=== PATIENT | male | born 1965 | race Caucasian/White ===

== ENCOUNTER 2019-03-14 13:11 | Day surgery (SDC) | payer BC ==
[~2019-03-14 13:11] MED LIST: BACITRACIN 50,000 UNIT, POLYMYXIN B 500,000 UNIT in SODIUM CHLORIDE 0.9% IRRIGATIO 1,00... IRRIGATION ONE; DEXAMETHASONE SOD PHOSPHATE 10 MG/ML 1 ML VIAL IV ONE; HYDROmorphone 0.5 MG/0.5 ML SYRINGE IVP PRN; LIDOCAINE 1% 20 ML VIAL (10MG/ML) FOR IV START INTRADERMA PRN; ONDANSETRON 4 MG/2 ML VIAL IVP ONE; fentaNYL (PF) 50 MCG/ML 2 ML AMP IV PRN
[2019-03-14] MEDS: LACTATED RINGERS 1,000 ML IV SCH (14:06)
[2019-03-14] MEDS ORDERED: NEOSTIGMINE 1 MG/ML 10 ML VIAL ONE (16:04)
[2019-03-14] MEDS ORDERED: MIDAZOLAM 2 MG/2 ML VIAL ONE (16:04)
[2019-03-14] MEDS ORDERED: LIDOCAINE 1% INJ 10MG/ML (20 ML MDV) ONE (16:04)
[2019-03-14] MEDS ORDERED: fentaNYL (PF) 50 MCG/ML 2 ML AMP ONE (16:04)
[2019-03-14] MEDS ORDERED: PROPOFOL 10 MG/ML 20 ML VIAL IV ONE (16:04)
[2019-03-14] MEDS ORDERED: GLYCOPYRROLATE 0.2 MG/ML 2 ML VIAL ONE (16:04)
[2019-03-14] MEDS ORDERED: ROCURONIUM BROMIDE 10 MG/ML 10 ML VIAL IV ONE (16:04)
[2019-03-14] MEDS ORDERED: SUCCINYLCHOLINE CHLORIDE 100 MG/5 ML SYR IV ONE (16:04)
[2019-03-14] MEDS ORDERED: BUPIVACAIN-EPI 0.25%-1:200,000 30 ML VIAL SQ ONE ×2 (16:57)
--- NOTE | 2019-03-14 17:17 | XR ---
Cervical spine HISTORY: Needle placement Single lateral view of the cervical spine. Endotracheal tube is in place. There are overlying leads. There is a needle present at the disc space C6-7, there is associated spondylosis. IMPRESSION: Orthopedic localization
[2019-03-14] MEDS ORDERED: ACETAMINOPHEN TAB 325 MG TAB PO PRN (17:34)
[2019-03-14] MEDS ORDERED: HYDROmorphone 0.5 MG/0.5 ML SYRINGE IVP PRN (17:34)
[2019-03-14] MEDS ORDERED: BENZOCAINE/MENTHOL LOZENG 1 EACH LOZENGE MUCOUS MEM PRN (17:34)
[2019-03-14] MEDS ORDERED: MAGNESIUM HYDROXIDE 2,400 MG/10 ML CUP PO PRN (17:34)
[2019-03-14] MEDS ORDERED: ONDANSETRON 4 MG/2 ML VIAL IVP PRN (17:34)
[2019-03-14] MEDS ORDERED: HYDROmorphone 1 MG/ML 1 ML SYRINGE IVP PRN (17:34)
[2019-03-14] MEDS ORDERED: HYDROcodone/APAP 5-325MG 1 EACH TAB PO PRN (17:34)
[2019-03-14] MEDS ORDERED: SODIUM CHLORIDE 0.9% 1,000 ML IV SCH (17:45)
[2019-03-14] MEDS ORDERED: IXEKIZUMAB IM SCH (17:45)
--- NOTE | 2019-03-14 17:45 | P.OP ---
Date of Procedure: 03/14/19 Preoperative Diagnosis: Herniated nucleus pulposis C6 7, left upper extremity radiculopathy, neck pain, Postoperative Diagnosis: Same Anesthesia: GETA Pathology: none sent Condition: stable Disposition: PACU Description of Procedure: BRIEF OPERATIVE NOTE Preoperative Diagnosis:Herniated nucleus pulposis C6 7, left upper extremity radiculopathy, neck pain, Postoperative Diagnosis:Herniated nucleus pulposis C6 7, left upper extremity radiculopathy, neck pain, Procedure: Anterior cervical decompression with discectomy and fusion C6 7 Placement of interbody graft C6 7 Application of anterior cervical plate C6 7 Surgeon: Dr. Aguirre Road Conductor: Neal Brennan is present throughout the entire the case persistence during positioning, dissection, exposure, visualization, and all crucial elements of the case as well as closure. Anesthesia: General anesthesia per Dr. Hodge Estimated blood loss: Approximately 50 mL Complications: None apparent Components implanted: K2M [place] anterior cervical plate with 4 screws measuring 14 mm and one Vikos interbody allograft bone graft Disposition: To recovery room in good stable condition. OPERATIVE INDICATIONS The patient has had long-standing issues in their neck and upper extremities. He is having severe pain in his left upper extremity over C7 distribution. Patient is found have disc herniation at C6 7 causing some impression at the left neural foramen I correlated with his symptoms. We attempted treat patient conservatively for extended. However he was not having any prolonged benefit despite aggressive conservative treatment. The patient has been through conservative treatment. We discussed various treatment options including surgery, and the patient wishes to proceed with surgery We discussed the risk, patient's alternatives and benefits of surgery including but not limited to, risk of bleeding risk of infection, risk of need for further surgery, risk of decreased, loss of motion, muscle function, malunion nonunion, hardware failure, nerve damage, paralysis, heart attack, and . OPERATIVE SUMMARY After discussing all the risks, patient alternatives and benefits at length, the patient elected to proceed with surgical intervention, signed informed consent, and presented for their procedure. The patient was seen and examined in the pre operative holding area and the surgical site was marked. The patient was given antibiotics and brought to the operating room. The patient was positioned on the operating room table in a supine position being careful to pad any bony prominences and pressure points. The patient was sedated and intubated by anesthesia in standard fashion. Once the airway and C- spine were stabilized the patient's arms were padded and tucked at her side, with her shoulders gently taped. The head was placed in a donut pad with the neck in good neutral alignment and position. We were careful to maintain the patient's cervical spine and good neutral alignment and position throughout. The patient was prepped and draped in a normal standard fashion. An appropriate timeout and keystone protocol performed. We were able to proceed with the surgery. The local wound area was infiltrated with local anesthetic. An incision was made transversely approximately 2-1/2 cm over the appropriate levels of C6 7. Dissection was taken down subcutaneously to the level of the platysma which was split in line with its fibers. Dissection was taken with a carotid approach, with the trachea and esophagus medial and the carotid sheath laterally. We dissected down to the anterior surface of the vertebral bodies. Intraoperative x-ray was taken which showed a marker at the appropriate level of C6 7. With the appropriate level positively confirmed, we were able to proceed with discectomy at the appropriate levels. All of the operative levels were exposed appropriately. The patient had all their twitches back, and there was no evidence of recurrent laryngeal issue. The wound was copiously irrigated and suctioned dry as had been done periodically throughout the case. At the appropriate level of C6 7, I established an annulotomy with an 11 blade scalpel. A discectomy was performed with a combination of pituitary rongeurs, curettes, a high-speed bur, and Kerrison rongeurs. The posterior longitudinal ligament was taken down as were any posterior osteophytes. There was evidence of a small disc extrusion and herniation which was also removed. This gave good central and bilateral foraminal decompression. There is no evidence of any dural tear or leak. The endplates were prepared with a high-speed bur. With the endplates in good parallel position, I was able to size for the appropriate size interbody graft. The wound was irrigated and suctioned dry the graft was prepared and malleted into position. It had good alignment and position with the anterior surface flush with the anterior surface of the vertebral bodies of C6 and C7. With the grafts intact, I was able to measure and contour and appropriate sized plate. The plate was positioned at the midline over the appropriate levels at C6 7. Screw holes were established with a hand drill and drill guide. Screws were placed in good alignment and position with excellent bony purchase. They were seated under the locking device. The construct was checked and found to be stable. Intraoperative x-ray was taken which showed good alignment and position of the implants at the appropriate levels. There was no evidence of any dural t ear or leak. Good hemostasis was maintained. The wound was copiously irrigated and suctioned dry as had been done periodically throughout the case. The platysma was closed with absorbable suture. The subcutaneous tissue was closed. The subcuticular tissue was closed with absorbable suture. The wound was cleaned and dried and dressed appropriately. A soft cervical collar was placed appropriately. The patient was woken up by anesthesia, extubated, transferred back gently to their hospital bed and brought to the recovery room in good stable condition. The patient will be admitted to the hospital for appropriate postoperative care, medical management and monitoring. We will continue to follow them closely about the postoperative course.
--- NOTE | 2019-03-14 18:14 | XR ---
EXAMINATION TYPE: XR cervical spine 1V DATE OF EXAM: 03/14/2019 COMPARISON: Today HISTORY: Fusion surgery TECHNIQUE: FINDINGS: A single lateral view shows plate and screw fusing anteriorly the cervical spine at C6-7. D etail is limited by the shoulders. IMPRESSION: No complicating process seen.
[2019-03-15 00:26] VITALS: RESP 16
[2019-03-15] MEDS: LACTATED RINGERS 1,000 ML IV SCH (07:11)
[2019-03-15 08:02] VITALS: BP 108/72; PULSE 88; TEMP 98.3
--- NOTE | 2019-03-15 08:58 | P.DS ---
Providers Date of admission: 03/14/2019 Expected date of discharge: 03/15/19 Attending physician: Thao Aguirre Primary care physician: Imelda Johnson MD - Discharge Diagnosis(es) (1) Herniated nucleus pulposus, C6-7 left Current Visit: Yes Status: Acute (2) Cervical pain Current Visit: Yes Status: Acute (3) Radiculopathy affecting upper extremity Current Visit: Yes Status: Acute (4) Hypertension Current Visit: Yes Status: Acute (5) Hyperlipidemia Current Visit: Yes Status: Acute Hospital Course: This is a pleasant 53-year-old male who presented with C6-7 herniated nucleus pulposis, left upper extremity radiculopathy, and cervical pain who failed outpatient conservative therapy. He was admitted for a C6-7 anterior cervical decompression and fusion. The patient tolerated the procedure well and did well postoperatively. He states he is unsure if he isn't had any significant change in his symptoms postoperatively. He has not had any worsening symptoms. He does feel he is ready for discharge today. Condition on day of discharge stable. Patient will be discharged home. Patient was cleared preoperatively for surgery by Dr. Johnson. Patient currently denies any nausea, vomiting, fever, or chills. Patient is eating and voiding freely without difficulty. Patient may shower silver and Tegaderm dressing intact. Patient may remove silver and Tegaderm dressing in 3 days and shower without a dressing at that time. Patient should refrain from driving until at least after their first follow-up appointment in the office. Patient should avoid excessive neck flexion, extension, rotation, and lateral sidebending; no overhead lifting; no lifting greater than 10 pounds. MAPS has been reviewed yesterday, 03/14/2019. An "Opiod Start Talking" form was signed and placed in the patient's chart. A prescription has been written for [place] 5 mg/325 mg 1 tab every 6 hours as needed for pain, dispensed #28. Patient should avoid anti-inflammatory medication of the next 6 weeks postoperatively. He may resume other previous he prescribed home medications while avoiding ibuprofen. Physical Exam on day of discharge: Patient is awake, alert, and oriented 3 Vital signs stable Good chest excursion with deep inspiration and expiration Abdomen soft nontender No signs or symptoms of DVT; no calf pain Full range of motion of the cervical spine with adequate flexion, extension, and bilateral rotation [employer] Worker strength, thumb strength, interosseous strength, biceps strength, triceps strength, and shoulder strength positive sustained bilaterally Soft cervical collar intact Incision is clean, dry, and intact; no erythema, purulence, or signs of infection Silver and Tegaderm dressing intact Procedures: C6-7 anterior cervical decompression and fusion Patient Condition at Discharge: Stable Plan - Discharge Summary Discharge Rx Participant: Yes New Discharge Prescriptions: New HYDROcodone/APAP 5-325MG [[place] 5-325] 1 tab PO Q6HR PRN #28 tab PRN Reason: Pain No Action amLODIPine [Norvasc] 10 mg PO QAM Sulfamethox-Tmp 800-160Mg [Bactrim DS 800-160 mg] 1 tab PO BID Lisinopril [Prinivil] 10 mg PO QAM Ixekizumab [Taltz Autoinjector] 1 injection IM Q30D Fenofibrate Nanocrystallized [Fenofibrate] 145 mg PO QAM Ibuprofen [Motrin Ib] 200 - 400 mg PO Q6H PRN PRN Reason: Pain Discharge Medication List Fenofibrate Nanocrystallized [Fenofibrate] 145 mg PO QAM 03/08/19 [History] Ibuprofen [Motrin Ib] 200 - 400 mg PO Q6H PRN 03/08/19 [History] Ixekizumab [Taltz Autoinjector] 1 injection IM Q30D 03/08/19 [History] Lisinopril [Prinivil] 10 mg PO QAM 03/08/19 [History] Sulfamethox-Tmp 800-160Mg [Bactrim DS 800-160 mg] 1 tab PO BID 03/08/19 [History] amLODIPine [Norvasc] 10 mg PO QAM 03/08/19 [History] HYDROcodone/APAP 5-325MG [[place] 5-325] 1 tab PO Q6HR PRN #28 tab 03/14/19 [Rx] Follow up Appointment(s)/Referral(s): Thao Aguirre DO [Doctor of Osteopathic Medicine] - 03/29/19 10:00 am Imelda Johnson MD [Primary Care Provider] - 03/18/19 1:30 pm Patient Instructions/Handouts: *Surgery [facility] - ([facility]) Cervical Surgery Discharge Instructions Activity/Diet/Wound Care/Special Instructions: Keep site clean. May shower with waterproof Tegaderm intact. Do not soak in a tub. After 72 hours postoperatively, patient May remove dressing and then may shower with area uncovered. Leave Steri-Strips intact and allow them to fray off on their own. May ambulate as tolerated. Avoid heavy or rigorous activity. No repetitive bending twisting or lifting. No overhead work. Discharge Disposition: HOME SELF-CARE
[2019-03-15] MEDS ORDERED: amLODIPine 10 MG TAB PO SCH (09:00)
[2019-03-15] MEDS ORDERED: FENOFIBRATE 160 MG TAB PO SCH (09:00)
[2019-03-15] MEDS ORDERED: LISINOPRIL 10 MG TAB PO SCH (09:00)
== END 2019-03-15 09:06 | disposition home or self-care (01) ==
LOC: OR 13:11 → 4SSUR 18:42 → OR 03-15 09:06
PROVIDERS: ATTEND Orthopaedic Surgery Orthopaedic Surgery of the Spine
DX: M50.123 Cervical disc disorder at C6-C7 level with radiculopathy (principal); M25.78 Osteophyte, vertebrae; I10 Essential (primary) hypertension; E78.5 Hyperlipidemia, unspecified; M25.522 Pain in left elbow; L40.9 Psoriasis, unspecified; E78.00 Pure hypercholesterolemia, unspecified; E78.1 Pure hyperglyceridemia; E87.6 Hypokalemia; R09.81 Nasal congestion; Z86.14 Personal history of Methicillin resistant Staphylococcus aureus infection; Z79.899 Other long term (current) drug therapy; Z88.8 Allergy status to other drugs, medicaments and biological substances; Z98.890 Other specified postprocedural states; Z83.3 Family history of diabetes mellitus; Z82.49 Family history of ischemic heart disease and other diseases of the circulatory system; Z86.010 Personal history of colon polyps; Z90.49 Acquired absence of other specified parts of digestive tract; Z80.9 Family history of malignant neoplasm, unspecified
CPT/HCPCS: 72020; 22551; 22845; 20931; C1713; C1762; J2250; J2710; J0690 ×2; J2405; J2001; J3010; J0330; J2704; J1170